=== PATIENT | male | born 1990 ===

== ENCOUNTER 2016-07-21 08:27 | Emergency (ER) | payer BC ==
[2016-07-21 08:39] VITALS: RESP 18
[2016-07-21] MEDS ORDERED: Sodium Chloride 0.9% 1,000 ML IV STA (09:30)
--- NOTE | 2016-07-21 10:21 | ED PDOC ---
HPI: CCC, URI, Sore Throat Time Seen by Provider: 07/21/16 09:15 Chief Complaint (Nursing): Flu-like Symptoms Chief Complaint (Provider): Flu-like Symptoms History Per: Patient History/Exam Limitations: no limitations Onset/Duration Of Symptoms: Hrs Current Symptoms Are (Timing): Still Present Location Of Pain: Throat Sick Contacts (Context): None Associated Symptoms: Fever, Chills, Nausea, Vomiting Ear Symptoms: Bilateral: None Severity: Mild Additional Complaint(s): Patient is a 26 year old male who presents to ED for fever with sore throat and chills since yesterday. Patient also reports mild abdominal pain with nausea and 1 episode of non bloody, non bilious vomiting. Denies sick contact or recent travel. PMD: Denies Past Medical History Reviewed: Historical Data, Nursing Documentation, Vital Signs Vital Signs: Last Vital Signs Temp 100.3 F H 07/21/16 12:39 Pulse 98 H 07/21/16 12:39 Resp 18 07/21/16 12:39 BP 123/59 L 07/21/16 12:39 Pulse Ox 100 07/21/16 12:39 - Medical History PMH: No Chronic Diseases - Surgical History Surgical History: No Surg Hx - Family History Family History: States: Unknown Family Hx - Living Arrangements Living Arrangements: With Family - Home Medications Home Medications: Ambulatory Orders Medication Instructions Recorded Ciprofloxacin [Cipro] 1 tab PO BID #14 tab 04/09/16 Ibuprofen [Motrin] 1 tab PO TID PRN #30 tab 04/09/16 metroNIDAZOLE [Flagyl] 500 mg PO BID #14 tab 04/09/16 oxyCODONE/Acetaminophen [Percocet 1 tab PO QID PRN #20 tab 04/09/16 5/325 mg Tab] Ibuprofen [Motrin Tab] 600 mg PO Q6 #30 tab 07/21/16 Penicillin VK [Pen-Vee K] 500 mg PO Q6 7 Days 07/21/16 predniSONE [predniSONE Tab] 60 mg PO DAILY #9 tab 07/21/16 - Allergies Allergies/Adverse Reactions: Allergies Allergy/AdvReac Type Severity Reaction Status Date / Time No Known Allergies Allergy Unverified 04/09/16 09:00 Review of Systems Constitutional: Positive for: Fever, Chills ENT: Positive for: Throat Pain. Negative for: Ear Pain Respiratory: Negative for: Shortness of Breath Gastrointestinal: Positive for: Nausea, Vomiting, Abdominal Pain. Negative for : Diarrhea Physical Exam - Reviewed Nursing Documentation Reviewed: Yes Vital Signs Reviewed: Yes - Physical Exam Appears: Positive for: Non-toxic, No Acute Distress Skin: Positive for: Normal Color, Warm (febrile). Negative for: Rash Eye Exam: Positive for: Normal appearance ENT: Positive for: Pharyngeal Erythema, Tonsillar Exudate. Negative for: Tonsillar Swelling Neck: Positive for: Normal, Painless ROM, Supple Cardiovascular/Chest: Positive for: Regular Rate, Rhythm. Negative for: Murmur Respiratory: Positive for: Normal Breath Sounds. Negative for: Respiratory Distress Gastrointestinal/Abdominal: Positive for: Soft, Tenderness (mild LUQ). Negative for: Distended, Rebound Back: Positive for: Normal Inspection Extremity: Positive for: Normal ROM Neurologic/Psych: Positive for: Alert, Oriented - Laboratory Results Result Diagrams: 07/21/16 10:00 07/21/16 10:00 - ECG O2 Sat by Pulse Oximetry: 97 (RA) Pulse Ox Interpretation: Normal Medical Decision Making Medical Decision Making: Time: 919 Initial impression: Viral illness Initial plan: -- BMP -- CBC -- CXR -- NSF, Reglan, Toradol and Tylenol -- Flu swab -- Rapid strep 1300: Pt. feeling much better, vitals improved, lactate negative (not concerned for sepsis). Will treat for strep and refer to clinic. Told to return for worsening fevers, chills, sore throat, or other concerning symptoms. Tolerating PO. Scribe Attestation: Documented by Dahlia Marcano acting as a scribe for Neo Weaver MD MD Scribe Attestation: All medical record entries made by the Scribe were at my direction and personally dictated by me. I have reviewed the chart and agree that the record accurately reflects my personal performance of the history, physical exam, medical decision making, and the department course for this patient. I have also personally directed, reviewed, and agree with the discharge instructions and disposition. Disposition - Clinical Impression Clinical Impression: Strep pharyngitis - Disposition Disposition Time: 13:00 Condition: IMPROVED Prescriptions: Ibuprofen [Motrin Tab] 600 mg PO Q6 #30 tab Penicillin VK [Pen-Vee K] 500 mg PO Q6 7 Days predniSONE [predniSONE Tab] 60 mg PO DAILY #9 tab Instructions: Strep Throat (ED) Forms: [facility] ED School/Work Excuse Print Language: NICARAGUAN
[2016-07-21 10:30] LABS: BASO % 0.3 % (0.0-2.0); EOS % 0.1 % (0.0-4.0); HEMATOCRIT 45.9 % (35.0-51.0); LYMPH # 1.2 K/uL (1.0-4.3); LYMPH % 7.1 % (20.0-40.0); MEAN CELL VOLUME 86.5 fl (80.0-94.0); MEAN CORPUSCULAR HGB CONC 33.6 g/dL (33.0-37.0); MEAN PLATELET VOLUME 7.6 fl (7.2-11.7); MONO # 0.8 K/uL (0.0-0.8); MONO % 4.9 % (0.0-10.0); NEUT # 14.7 K/uL (1.8-7.0); NEUT % 87.6 % (50.0-75.0); PLATELET COUNT 240 K/uL (130-400); RED CELL DISTRIBUTION WIDTH 12.7 % (11.5-14.5); WHITE BLOOD COUNT 16.7 K/uL (4.8-10.8)
[2016-07-21 10:52] LABS: EOSINOPHIL 1 % (0-7); NEUTROPHIL 87 % (42-75); TOTAL CELLS COUNTED 100
[2016-07-21 11:45] LABS: BLOOD UREA NITROGEN 14 mg/dl (9-20); CALCIUM 10.1 mg/dL (8.4-10.2); CARBON DIOXIDE 23 mmol/L (22-30); CHLORIDE 102 mmol/L (98-107); GFR AFRICAN-AMERICAN > 60; GLUCOSE,RANDOM 105 mg/dL (75-110); SODIUM 137 mmol/l (132-148)
[2016-07-21 12:37] LABS: VENOUS BLOOD GAS PCO2 42 mmHg (40-60)
[2016-07-21 12:40] VITALS: BP 123/59; PULSE 98; TEMP 100.3
--- NOTE | 2016-07-21 12:46 | RAD ---
HISTORY: Fever and cough COMPARISON: No prior. TECHNIQUE: Chest PA and lateral FINDINGS: LUNGS: The lungs are well inflated and clear. PLEURA: No significant pleural effusion identified. No pneumothorax apparent. CARDIOVASCULAR: Normal. OSSEOUS STRUCTURES: No significant abnormalities. VISUALIZED UPPER ABDOMEN: Normal. OTHER FINDINGS: None. IMPRESSION: No active pulmonary disease.
[2016-07-21 13:05] VITALS: O2SAT 97
== END 2016-07-21 13:29 | disposition home or self-care (01) ==
LOC: H.ER 08:27
DX: J02.0 Streptococcal pharyngitis (principal); R50.9 Fever, unspecified; R11.2 Nausea with vomiting, unspecified; R10.9 Unspecified abdominal pain
CPT/HCPCS: 71020; 80048; 82803; 85025; 87430; 87804; 96361; 96374; 96375; 99284; J1885; J2765; J7040

== ENCOUNTER 2016-10-02 00:47 | Emergency (ER) | payer BC ==
[2016-10-02 01:04] VITALS: BP 141/77; PULSE 87; RESP 16; TEMP 98; O2SAT 98
--- NOTE | 2016-10-02 01:11 | ED PDOC ---
HPI: CCC, URI, Sore Throat Time Seen by Provider: 10/02/16 00:57 Chief Complaint (Nursing): ENT Problem Chief Complaint (Provider): Sore throat History Per: Patient Additional Complaint(s): Pt ambulated to ER for eval of throat pain x 1 week Past Medical History Reviewed: Nursing Documentation, Vital Signs Vital Signs: Last Vital Signs Temp 98.0 F 10/02/16 01:02 Pulse 87 10/02/16 01:02 Resp 16 10/02/16 01:02 BP 141/77 10/02/16 01:02 Pulse Ox 98 10/02/16 01:11 - Medical History PMH: No Chronic Diseases - Surgical History Surgical History: No Surg Hx - Family History Family History: States: Unknown Family Hx - Living Arrangements Living Arrangements: With Family - Social History Current smoker - smoking cessation education provided: No Alcohol: Social Drugs: Denies - Home Medications Home Medications: Ambulatory Orders Medication Instructions Recorded Ciprofloxacin [Cipro] 1 tab PO BID #14 tab 04/09/16 Ibuprofen [Motrin] 1 tab PO TID PRN #30 tab 04/09/16 metroNIDAZOLE [Flagyl] 500 mg PO BID #14 tab 04/09/16 oxyCODONE/Acetaminophen [Percocet 1 tab PO QID PRN #20 tab 04/09/16 5/325 mg Tab] Ibuprofen [Motrin Tab] 600 mg PO Q6 #30 tab 07/21/16 Penicillin VK [Pen-Vee K] 500 mg PO Q6 7 Days 07/21/16 predniSONE [predniSONE Tab] 60 mg PO DAILY #9 tab 07/21/16 Ibuprofen [Motrin] 600 mg PO Q6 #20 tab 10/02/16 Methylprednisolone [Medrol Dose 4 mg PO DAILY #21 mg 10/02/16 Pack (21 tabs)] - Allergies Allergies/Adverse Reactions: Allergies Allergy/AdvReac Type Severity Reaction Status Date / Time No Known Allergies Allergy Unverified 04/09/16 09:00 Review of Systems ROS Statement: Except As Marked, All Systems Reviewed And Found Negative Constitutional: Positive for: Fever ENT: Positive for: Throat Pain Physical Exam - Reviewed Nursing Documentation Reviewed: Yes Vital Signs Reviewed: Yes - Physical Exam Appears: Positive for: Well, Non-toxic, No Acute Distress Head Exam: Positive for: ATRAUMATIC, NORMAL INSPECTION, NORMOCEPHALIC Skin: Positive for: Normal Color, Warm, DRY Eye Exam: Positive for: EOMI, Normal appearance, PERRL ENT: Positive for: TM Is/Are (WNL), Pharyngeal Erythema. Negative for: Tonsillar Exudate, Tonsillar Swelling Neck: Positive for: Normal, Painless ROM Cardiovascular/Chest: Positive for: Regular Rate, Rhythm Respiratory: Positive for: CNT, Normal Breath Sounds Gastrointestinal/Abdominal: Positive for: Normal Exam, Bowel Sounds, Soft Back: Positive for: Normal Inspection Extremity: Positive for: Normal ROM Neurologic/Psych: Positive for: Alert, Oriented - ECG O2 Sat by Pulse Oximetry: 98 Medical Decision Making Medical Decision Making: Medicated with Motrin PO Rapid strep (-) Disposition - Clinical Impression Clinical Impression: Pharyngitis - Patient ED Disposition Is Patient to be Admitted: No - Disposition Disposition: Routine/Home Disposition Time: 01:15 Condition: STABLE Prescriptions: Ibuprofen [Motrin] 600 mg PO Q6 #20 tab Methylprednisolone [Medrol Dose Pack (21 tabs)] 4 mg PO DAILY #21 mg Instructions: Pharyngitis (ED)
== END 2016-10-02 02:08 | disposition home or self-care (01) ==
LOC: H.ER 00:47
DX: J02.9 Acute pharyngitis, unspecified (principal)

== ENCOUNTER 2018-05-09 18:46 | Emergency (ER) | payer BC ==
[2018-05-09] MEDS ORDERED: Sodium Chloride 0.9% 1,000 ML IV STA (19:50)
--- NOTE | 2018-05-09 19:59 | ED PDOC ---
HPI: Abdomen Time Seen by Provider: 05/09/18 19:44 Chief Complaint (Nursing): Abdominal Pain Chief Complaint (Provider): Abdominal Pain History Per: Patient Onset/Duration Of Symptoms: Days (x 2 weeks) Current Symptoms Are (Timing): Still Present Location Of Pain/Discomfort: LUQ, LLQ Quality Of Discomfort: "Pain" Associated Symptoms: Diarrhea Additional Complaint(s): 28 year old male with no significant medical history presents to the ED for evaluation of abdominal bloating and left sided abdominal pain for the last two week. Patient additionally notes that recently he had bright red blood in stool. He also reports similar episodes a few months ago that resolved spontaneously as well as intermittent diarrhea 2 episodes per day when present. Denies fever, sick contacts, vomiting, nausea, cough and shortness of breath. PMD: none provided Past Medical History Reviewed: Historical Data, Nursing Documentation, Vital Signs Vital Signs: Last Vital Signs Temp 98.2 F 05/09/18 19:37 Pulse 88 05/09/18 19:37 Resp 16 05/09/18 19:37 BP 139/77 05/09/18 19:37 Pulse Ox 99 05/09/18 19:37 - Medical History PMH: No Chronic Diseases - Surgical History Surgical History: No Surg Hx - Family History Family History: States: Unknown Family Hx - Social History Current smoker - smoking cessation education provided: No Alcohol: None Drugs: Denies - Home Medications Home Medications: Ambulatory Orders Medication Instructions Recorded Ciprofloxacin [Cipro] 1 tab PO BID #14 tab 04/09/16 Ibuprofen [Motrin] 1 tab PO TID PRN #30 tab 04/09/16 metroNIDAZOLE [Flagyl] 500 mg PO BID #14 tab 04/09/16 oxyCODONE/Acetaminophen [Percocet 1 tab PO QID PRN #20 tab 04/09/16 5/325 mg Tab] RX: Ibuprofen [Motrin Tab] 600 mg PO Q6 #30 tab 07/21/16 RX: Penicillin VK [Penicillin VK 500 mg PO Q6 7 Days tab 07/21/16 Tab] RX: predniSONE [predniSONE Tab] 60 mg PO DAILY #9 tab 07/21/16 Ibuprofen [Motrin] 600 mg PO Q6 #20 tab 10/02/16 Methylprednisolone [Medrol Dose 4 mg PO DAILY #21 mg 10/02/16 Pack (21 tabs)] Dicyclomine [Bentyl] 1 tab PO QID PRN #12 tab 05/09/18 Famotidine [Pepcid] 40 mg PO DAILY #10 tablet 05/09/18 RX: Naproxen 500 mg PO BID PRN #20 tab 05/09/18 - Allergies Allergies/Adverse Reactions: Allergies Allergy/AdvReac Type Severity Reaction Status Date / Time No Known Allergies Allergy Verified 05/09/18 19:37 Review of Systems ROS Statement: Except As Marked, All Systems Reviewed And Found Negative Constitutional: Negative for: Fever Respiratory: Negative for: Cough, Shortness of Breath Gastrointestinal: Positive for: Abdominal Pain (left side), Diarrhea (intermittent), Hematochezia, Other (abdominal bloating). Negative for: Nausea, Vomiting Physical Exam - Reviewed Nursing Documentation Reviewed: Yes Vital Signs Reviewed: Yes - Physical Exam Comments: GENERAL APPEARANCE: Patient is awake, alert, oriented x 3, in no distress. On cell phone. SKIN: Warm, dry; (-) cyanosis. ENMT: Mucous membranes moist. NECK: Supple, FROM CHEST AND RESPIRATORY: (-) rales, (-) rhonchi, (-) wheezes; breath sounds equal bilaterally. Respirations nonlabored. HEART AND CARDIOVASCULAR: (-) irregularity ABDOMEN AND GI: Soft. Bowel sounds active x 4; (+) mild left upper quadrant tenderness, (+) minimal distention (-) guarding, (-) rebound, (-) palpable masses, (-) CVA tenderness. RECTAL: Rectal tone: normal. (-) hemorrhoids visualized, (-) tenderness, (-) palpable mass (+) 3mm anal fissure to 12 oclock and 4oclock position (-) active bleeding. EXTREMITIES: (-) deformity, (-) edema, (+) distal pulses. NEURO AND PSYCH: Mental status as above; (-) focal findings. Gait: steady. Speech: clear. - Laboratory Results Result Diagrams: 05/09/18 20:18 05/09/18 20:18 - ECG O2 Sat by Pulse Oximetry: 99 (RA) Pulse Ox Interpretation: Normal Medical Decision Making Medical Decision Makin:50 Clinical Impression: Abdominal pain, anal fissure, bloating and diarrhea Initial Plan: --CMP --CBC --Lipase --Bentyl 20 mg PO --NS IV 1,000 mls --Pepcid 20 mg IVP --Toradol 30 mg IVP --Ova and Parasite --Stool cx --UA Geodetic Advisor for rectal exam- VANCE Verma. 2049 Labs reviewed, slight elevation of LFTs. On re-evaluation, patient reports persistent LUQ and LLQ pain. Patient states "I feel something in there". CT abd with IV contrast ordered. 2149 Patient sleeping comfortably on re-evaluation. No distress noted. 2199 CT reviewed, [facility] report follows EXAM: CT Abdomen and Pelvis with IV contrast CLINICAL HISTORY: Luq, llq pain, +distention TECHNIQUE: Axial computed tomography images of the abdomen and pelvis with intravenous contrast. 649.72 mGy-cm CONTRAST: With; [id number] 95ML COMPARISON: None provided. FINDINGS: LUNG BASES: The lung bases appear clear. No pleural effusions are seen. LIVER: Unremarkable. GALLBLADDER AND BILE DUCTS: The gallbladder is contracted. No radioopaque gallstones are seen. No biliary ductal dilatation is evident. PANCREAS: Unremarkable. SPLEEN: Unremarkable. ADRENAL GLANDS: Unremarkable. KIDNEYS, URETERS, AND BLADDER: The kidneys appear within normal limits. There is no hydronephrosis or hydroureter. No urinary calculi are seen. STOMACH AND BOWEL: Thick walled fluid filled duodenum and loops of jejunum as well as ileum compatible with enteritis. Infectious and inflammatory etiologies are considered. APPENDIX: No evidence of acute appendicitis on CT examination. PERITONEUM: No free fluid. No free air. LYMPH NODES: No lymphadenopathy is evident. REPRODUCTIVE: Unremarkable as visualized. VASCULATURE: No evidence of abdominal aortic aneurysm. BONES: No aggressive appearing osseous lesion. No acute osseous pathology evident. IMPRESSION: Enteritis. Infectious and inflammatory etiologies are considered. Electronically signed on May 09, 2018 10:05:58 PM EST by: Kyaw Pemberton M.D., SCOTTY Certified By [facility] [employer] [facility] Fellowship Trained MRI and CT Specialist On re-evaluation, patient reports improvement of symptoms. On exam, patient remains AAOx3, in no acute distress. Lungs clear to auscultation, cardiac RRR, repeat neuro exam shows no focal findings. Vitals stable. Lab/Diagnostic results d/w the patient in great detail. Diagnosis of gastroenteritis, diarrhea, anal fissure d/w the patient. Based on history, exam and diagnostic results, plan will be for outpatient follow up with GI/clinic. Patient instructed to follow-up with pmd / referral provided / the clinic in 1- 2 days without fail. Advised to take medication as prescribed. Return to the emergency room at any time for any new or worsening symptoms. Patient states he fully agrees with and understands discharge instructions. States that he agrees with the plan and disposition. Verbalized and repeated discharge instructions and plan. I have given the patient opportunity to ask any additional questions. Scribe Attestation: Documented by Maria E Prieto, acting as a scribe for Jael Conde PA-C Provider Scribe Attestation: All medical record entries made by the Scribe were at my direction and personally dictated by me. I have reviewed the chart and agree that the record accurately reflects my personal performance of the history, physical exam, medical decision making, and the department course for this patient. I have also personally directed, reviewed, and agree with the discharge instructions and disposition. Disposition - Clinical Impression Clinical Impression: Abdominal discomfort, Anal fissure, Diarrhea, Gastroenteritis, Elevated LFTs - Patient ED Disposition Is Patient to be Admitted: No Counseled Patient/Family Regarding: Studies Performed, Diagnosis, Need For Followup, Rx Given - Disposition Referrals: [facility] [Outside] Freeman Streeter MD [Staff Provider] - Disposition: Routine/Home Disposition Time: 22:10 Condition: STABLE Additional Instructions: La atencin mdica de emergencia que recibi hoy se dirigi a isiah sntomas agudos. Si le recetaron algn medicamento, llnelo y tmelo segn las indicaciones. Los sntomas pueden tardar varios cisneros en resolverse. Regrese al Departamento de Emergencias si isiah sntomas empeoran, no mejoran o si tiene otros problemas. Comunquese con padron mdico dentro de 2 cisneros para breonna nueva evaluacin y sharan un seguimiento o llame a maxi de los mdicos / clnicas a los que trinh sido referido y que figuran en el formulario de Informacin de visita al paciente que se incluye en padron paquete de [place]. Lleve todos los documentos que le entregaron al momento del [place]ley junto con todos los medicamentos que est tomando para padron visita de seguimiento. Nuestro tratamiento no puede reemplazar la atencin mdica continua por parte de un proveedor de atencin primaria (PCP) fuera del departamento de emergencias. Prescriptions: Dicyclomine [Bentyl] 1 tab PO QID PRN #12 tab PRN Reason: Diarrhea Famotidine [Pepcid] 40 mg PO DAILY #10 tablet RX: Naproxen 500 mg PO BID PRN #20 tab PRN Reason: Pain, Moderate (4-7) Instructions: Diarrhea in Adolescents and Adults, Anal Fissure, Acute Abdomen (Belly Pain), Adult (DC), Liver Function Test, Gastroenteritis (ED) Forms: [employer] (Persian) Print Language: DUTCH - POA Present On Arrival: None Results - Lab Results Lab Results: 05/09/18 05/09/18 05/09/18 20:18 20:18 20:18 WBC 8.9 RBC 5.14 Hgb 15.2 Hct 45.3 MCV 88.3 MCH 29.5 MCHC 33.5 RDW 12.9 Plt Count 265 MPV 7.9 Neut % (Auto) 42.4 L Lymph % (Auto) 46.7 H [place] % (Auto) 7.1 Eos % (Auto) 3.3 Baso % (Auto) 0.5 Neut # (Auto) 3.8 Lymph # (Auto) 4.1 [place] # (Auto) 0.6 Eos # (Auto) 0.3 Baso # (Auto) 0.0 Sodium 140 Potassium 3.9 Chloride 98 Carbon Dioxide 30 Anion Gap 16 BUN 18 Creatinine 1.0 Est GFR ( Amer) > 60 Est GFR (Non-Af Amer) > 60 Random Glucose 85 Calcium 10.2 Total Bilirubin 0.4 AST 72 H D ALT 133 H Alkaline Phosphatase 63 Total Protein 8.3 H Albumin 4.8 Globulin 3.5 Albumin/Globulin Ratio 1.4 Lipase 68 Urine Color Yellow Urine Clarity Slighty-cloudy Urine pH 6.0 Ur Specific [place] 1.023 Urine Protein Negative Urine Glucose (UA) Neg Urine Ketones Negative Urine Blood Negative Urine Nitrate Negative Urine Bilirubin Negative Urine Urobilinogen 0.2-1.0 Ur Leukocyte Esterase Neg Urine RBC (Auto) 2 Urine Microscopic WBC 1 Ur Squamous Epith Cells < 1 Amorphous Sediment Rare H
[2018-05-09 20:40] LABS: BASO % 0.5 % (0.0-2.0); EOS # 0.3 K/uL (0.0-0.7); EOS % 3.3 % (0.0-4.0); HEMOGLOBIN 15.2 g/dL (12.0-18.0); LYMPH # 4.1 K/uL (1.0-4.3); LYMPH % 46.7 % (20.0-40.0); MEAN CELL VOLUME 88.3 fl (80.0-94.0); MEAN CORPUSCULAR HEMOGLOBIN 29.5 pg (27.0-31.0); MEAN CORPUSCULAR HGB CONC 33.5 g/dL (33.0-37.0); MEAN PLATELET VOLUME 7.9 fl (7.2-11.7); MONO # 0.6 K/uL (0.0-0.8); MONO % 7.1 % (0.0-10.0); NEUT # 3.8 K/uL (1.8-7.0); NEUT % 42.4 % (50.0-75.0); NRBC % 0.1 % (0.0-0.0); RBC 5.14 Mil/uL (4.40-5.90); RED CELL DISTRIBUTION WIDTH 12.9 % (11.5-14.5); WHITE BLOOD COUNT 8.9 K/uL (4.8-10.8)
[2018-05-09 20:44] LABS: SQUAMOUS EPITHIAL < 1 /hpf (0-5); URINE AMORPHOUS SEDIMENT RARE /ul (<OCC); URINE BILIRUBIN NEGATIVE (NEGATIVE); URINE BLOOD NEGATIVE (NEGATIVE); URINE CLARITY SLIGHTY-CLOUDY (Clear); URINE COLOR YELLOW (YELLOW); URINE GLUCOSE (UA) NEG (NEGATIVE); URINE LEUKOCYTE ESTERASE NEG Leu/uL (Negative); URINE PROTEIN NEGATIVE (NEGATIVE); URINE UROBILINOGEN 0.2-1.0 mg/dL (0.2-1.0)
[2018-05-09 20:46] LABS: ALB/GLOB RATIO 1.4 (1.0-2.1); ALBUMIN 4.8 g/dL (3.5-5.0); ALT/SGPT 133 U/L (21-72); AST/SGOT 72 U/L (17-59); BLOOD UREA NITROGEN 18 mg/dl (9-20); CALCIUM 10.2 mg/dL (8.4-10.2); GFR NON-AFRICAN AMERICAN > 60; LIPASE 68 U/L (23-300)
[2018-05-09] MEDS ORDERED: Sodium Chloride 0.9% 50 ML IV ONE (21:03)
[2018-05-09] MEDS ORDERED: Iohexol 300 100 ML IJ ONE (21:03)
[2018-05-09 22:24] VITALS: BP 113/56; PULSE 77; RESP 18; TEMP 97.7
--- NOTE | 2018-05-10 11:06 | CT ---
Date of service: 05/09/2018 PROCEDURE: CT Abdomen and Pelvis with contrast HISTORY: LUQ and LLQ pain, (+) distention COMPARISON: None available. TECHNIQUE: CT scan of the abdomen and pelvis was performed after administration of intravenous contrast. Oral contrast was not administered. Coronal and sagittal reformatted images were obtained. Contrast dose: 95 mL Omnipaque 300 Radiation dose: Total exam DLP = 649.72 mGy-cm. This CT exam was performed using one or more of the following dose reduction techniques: Automated exposure control, adjustment of the mA and/or kV according to patient size, and/or use of iterative reconstruction technique. FINDINGS: LOWER THORAX: The visualized lungs are clear. LIVER: Normal in size with homogeneous enhancement. No gross lesion or ductal dilatation. GALLBLADDER AND BILE DUCTS: The gallbladder is contracted. PANCREAS: Normal in size with homogeneous enhancement. No gross lesion or ductal dilatation. SPLEEN: Normal in size and appearance. ADRENALS: No discrete nodule. KIDNEYS AND URETERS: Normal in size with homogeneous enhancement. No hydronephrosis. No solid mass. VASCULATURE: No aortic aneurysm. There are no aortic atherosclerotic calcifications or mural plaque present. BOWEL: Evaluation of the bowel is limited in the absence of oral contrast. There are fluid-filled mildly dilated mid and distal small bowel loops.. There is moderate amount of stool in the colon. No bowel wall thickening or obstruction. APPENDIX: Normal appendix. PERITONEUM: No free fluid. No free air. LYMPH NODES: No enlarged lymph nodes. BLADDER: Decompressed. REPRODUCTIVE: The prostate gland is normal in size. BONES: No acute fracture. Within normal limits for the patient's age. OTHER FINDINGS: None. IMPRESSION: Fluid-filled mildly dilated mid and distal small bowel loops may represent nonspecific acute infectious/inflammatory enteritis. No evidence for bowel obstruction. A preliminary report was provided by [employer].
[2018-05-12 16:14] VITALS: O2SAT 99
== END 2018-05-09 22:30 | disposition home or self-care (01) ==
LOC: H.ER 18:46
DX: R10.9 Unspecified abdominal pain (principal); R19.7 Diarrhea, unspecified; K52.9 Noninfective gastroenteritis and colitis, unspecified; K60.2 Anal fissure, unspecified; R94.5 Abnormal results of liver function studies
CPT/HCPCS: 74177; 80053; 81003; 83690; 85025; 87045; 87177; 87209; 96361; 96374; 96375; 99283; J1885; J7030; Q9967